=== PATIENT | female | born 1980 | race Caucasian/White ===

== ENCOUNTER 2018-09-10 18:05 | Inpatient (IN) | payer SELFPAY ==
[~2018-09-10] VITALS: Ht 165.1 cm; Wt 99.6 kg
[2018-09-10 18:14] VITALS: Ht 165.1 cm; Wt 99.6 kg
[2018-09-10] MEDS ORDERED: SODIUM CHLORIDE 0.9% 1L BAG IV* STA (18:50)
[2018-09-10] MEDS ORDERED: ACETAMINOPHEN 325 MG TAB PO STA (18:50)
[2018-09-10] MEDS ORDERED: ONDANSETRON 4 MG INJ IV STA (20:00)
[2018-09-10] MEDS ORDERED: morphine 4 MG/ML VIAL IV STA ×2 (20:00→21:19)
[2018-09-10] MEDS ORDERED: IOHEXOL 300MG/ML 150 ML BTL ONE (20:04)
[2018-09-10] MEDS ORDERED: SOD CHLORIDE 0.9% 100 ML ONE (20:04)
[2018-09-10] MEDS ORDERED: DIPHENHYDRAMINE 50 MG INJ IV ONE (21:00)
[2018-09-10] MEDS ORDERED: LEVOFLOXACIN 750MG/D5W (PMX) 150 ML IVPB ONE (21:00)
[2018-09-10] MEDS ORDERED: VANCOMYCIN 1 GM (PMX) 250 ML IVPB ONE (21:00)
[2018-09-10 21:36] VITALS: RESP 20
[2018-09-10 21:55] VITALS: PULSE 106
[2018-09-10 22:06] VITALS: BP 118/56; PULSE 105
[2018-09-10] MEDS ORDERED: ACETAMINOPHEN 325 MG TAB PO PRN (22:30)
[2018-09-10] MEDS ORDERED: ONDANSETRON 4 MG INJ IV PRN (22:30)
[2018-09-10] MEDS ORDERED: ALBUTEROL/IPRATROPIUM (NEB) 3 ML AMP HHN PRN (22:30)
[2018-09-10] MEDS ORDERED: NACL 0.9% 3 ML SYG IV SCH (22:30)
--- NOTE | 2018-09-10 22:32 | HP ---
Date/Time of Note Date/Time of Note DATE: 09/10/18 TIME: 22:32 Assessment/Plan VTE Prophylaxis Pharmacological prophylaxis: heparin Lines/Catheters IV [facility]ter [facility]from [facility]ine [facility] Assessment/Plan Assessment/Plan Patient presented with chest pain and found to be septic secondary to UTI. CT pulmonary angiogram shows the following -No evidence of pulmonary embolism or aortic dissection. -Homogeneous mass with lobulated contours measuring 2.3 x 3.2 x 2.9 cm posterior to the manubrium entirely above of the arch of the aorta. Differential includes but is not limited to a substernal thyroid, thymoma and teratoma. -Multiple poorly defined hypodense lesions within the liver measuring up to 1.3 cm, indeterminate. Further evaluation can be made by ultrasound or dedicated triple phase CT of the liver. -Status post cholecystectomy. Shortly after she was admitted to telemetry floor, patient stated that she wanted to leave [place]. I did get a chance to speak to her in person, however I talked to her over the phone extensively. We discussed the finding of CTPA and I told her the possibility of malignancy. She said that she has to go because of some family issue. She promised to follow-up with her PCP in [place]. Desp ite several attempts to make her change her mind, patient decided to leave [place]. Result Diagram: 09/10/[id number]/[id number] Results 24hrs Laboratory Tests Test 09/10/18 18:58 09/10/18 18:59 09/10/18 19:22 09/10/18 19:23 Urine Color YELLOW Urine Clarity CLOUDY A Urine pH 8.0 Urine Specific 1.018 [place] Urine Ketones NEGATIVE Urine Nitrite NEGATIVE Urine Bilirubin NEGATIVE Urine Urobilinogen NEGATIVE Urine Leukocyte 2+ H Esterase Urine Microscopic 4 RBC Urine Microscopic 50 H WBC Urine Squamous MANY A Epithelial Cells Urine Bacteria FEW A Urine Mucus FEW A Urine Hemoglobin NEGATIVE Urine Glucose NEGATIVE Urine Total Protein NEGATIVE Urine Opiates Screen Positive Urine Barbiturates Negative Urine Amphetamines Negative Screen Urine Negative Benzodiazepines Screen Urine Cocaine Screen Negative Urine Cannabinoids Negative POC Venous Lactate 2.7 *H Sodium Level 141 Potassium Level 3.9 Chloride Level 106 Carbon Dioxide Level 26 Anion Gap 9 Blood Urea Nitrogen 12 Creatinine 0.64 Est Glomerular > 60 Filtrat Rate mL/min Glucose Level 111 Calcium Level 9.0 Total Bilirubin 0.2 Direct Bilirubin 0.00 Indirect Bilirubin 0.2 Aspartate Amino 38 Transf (AST/SGOT) Alanine 43 Aminotransferase (AL T/SGPT) Alkaline Phosphatase 150 H Troponin I < 0.012 Total Protein 7.3 Albumin 4.0 Globulin 3.30 H Albumin/Globulin 1.21 Ratio Test 09/10/18 19:49 09/10/18 21:29 White Blood Count 12.3 H Red Blood Count 4.56 Hemoglobin 10.7 L Hematocrit 35.8 L Mean Corpuscular 78.5 L Volume Mean Corpuscular 23.5 L Hemoglobin Mean Corpuscular 29.9 L Hemoglobin Concent Red Cell 18.9 H Distribution Width Platelet Count 411 Mean Platelet Volume 10.0 Immature 0.500 H Granulocytes % Neutrophils % 72.0 Lymphocytes % 18.3 Monocytes % 7.9 Eosinophils % 1.1 Basophils % 0.2 Nucleated Red Blood 0.0 Cells % Immature 0.060 H Granulocytes # Neutrophils # 8.9 H Lymphocytes # 2.3 Monocytes # 1.0 H Eosinophils # 0.1 Basophils # 0.0 Nucleated Red Blood 0.0 Cells # Prothrombin Time 12.2 Prothrombin Time 1.0 Ratio INR International 0.89 Normalized Ratio Activated 31.0 Partial Thromboplast Time POC Venous Lactate 1.4 HPI/ROS Admit Date/Time Admit Date/Time September 10, 2018 at 20:55 Hx of Present Illness This is a 38-year-old female with a history of mitral valve repair who presents the ER complaining of chest pain. When she presented to the ER, she was found to be febrile with temperature of 101, heart rate 123. UA consistent with UTI. EKG without ST elevation or depression and first troponin negative. Chest x-ray without acute findings. CTPA however shows the following: -No evidence of pulmonary embolism or aortic dissection. -Homogeneous mass with lobulated contours measuring 2.3 x 3.2 x 2.9 cm posterior to the manubrium entirely above of the arch of the aorta. Differential includes but is not limited to a substernal thyroid, thymoma and teratoma. -Multiple poorly defined hypodense lesions within the liver measuring up to 1.3 cm, indeterminate. Further evaluation can be made by ultrasound or dedicated triple phase CT of the liver. -Status post cholecystectomy. Shortly after she was admitted to telemetry floor, patient stated that she wanted to leave [place]. I did get a chance to speak to her in person, however I talked to her over the phone extensively. We discussed the finding of CTPA and I told her the possibility of malignancy. She said that she has to go because of some family issue. She promised to follow-up with her PCP in [place]. Despite several attempts to make her change her mind, patient decided to leave [place]. PMH/Family/Social Past Medical History Medical History: other (See HPI) Medications Current Medications Vancomycin HCl 250 ml @ 125 mls/hr ONCE ONCE IVPB Last administered on 09/10/18at 22:30; Admin Dose 125 MLS/HR; Start 09/10/18 at 21:00; Stop 09/10/18 at 22:59 Coded Allergies: Penicillins (Unverified Allergy, Unknown, 09/10/18) Past Surgical History Past Surgical Hx: other (I told the repair) Family History Significant Family History: other (Family member and her mother side with a diagnosis of some type of cancer at age of 60) Social History Alcohol Use: other (Unknown) Smoking Status: Never smoker Drug Use: other (Unknown) Exam/Review of Systems Vital Signs Vitals Vital Signs Date Temp Pulse Resp B/P (MAP) Pulse Ox O2 O2 Flow FiO2 Time Delivery Rate 09/10/18 98.7 105 118/56 97 Room Air 22:06 (76) 09/10/18 20 21:36 Exam Exam Patient left AMA right after she got admitted so did not get a chance to examine. BRIAN CARDENAS MD September 10, 2018 22:32
[2018-09-10 23:16] VITALS: PULSE 104
--- NOTE | 2018-09-11 05:40 | DS ---
Date/Time of Note Date/Time of Note DATE: 09/11/18 TIME: 05:39 Discharge Summary Admission/Discharge Info Admit Date/Time September 10, 2018 at 20:55 Discharge Date/Time September 10, 2018 at 23:30 Discharge Diagnosis 1. Sepsis, secondary to UTI 2. Chest pain 3. Abnormal CTPA (see radiology report or below under hospital course) 4. Patient left AMA shortly after admission Patient Condition: Serious Hx of Present Illness This is a 38-year-old female with a history of mitral valve repair who presents the ER complaining of chest pain. When she presented to the ER, she was found to be febrile with temperature of 101, heart rate 123. UA consistent with UTI. EKG without ST elevation or depression and first troponin negative. Chest x-ray without acute findings. CTPA however shows the following: -No evidence of pulmonary embolism or aortic dissection. -Homogeneous mass with lobulated contours measuring 2.3 x 3.2 x 2.9 cm posterior to the manubrium entirely above of the arch of the aorta. Differential includes but is not limited to a substernal thyroid, thymoma and teratoma. -Multiple poorly defined hypodense lesions within the liver measuring up to 1.3 cm, indeterminate. Further evaluation can be made by ultrasound or dedicated triple phase CT of the liver. -Status post cholecystectomy. Hospital Course Patient presented with chest pain and found to be septic secondary to UTI. CT pulmonary angiogram shows the following -No evidence of pulmonary embolism or aortic dissection. -Homogeneous mass with lobulated contours measuring 2.3 x 3.2 x 2.9 cm posterior to the manubrium entirely above of the arch of the aorta. Differential includes but is not limited to a substernal thyroid, thymoma and teratoma. -Multiple poorly defined hypodense lesions within the liver measuring up to 1.3 cm, indeterminate. Further evaluation can be made by ultrasound or dedicated triple phase CT of the liver. -Status post cholecystectomy. Shortly after she was admitted to telemetry floor, patient stated that she wanted to leave [place]. I did get a chance to speak to her in person, however I talked to her over the phone extensively. We discussed the finding of CTPA and I told her the possibility of malignancy. She said that she has to go because of some family issue. She promised to follow-up with her PCP in [place]. Despite several attempts to make her change her mind, patient decided to leave [place]. Primary Care Provider Care Physician No Primary Pending Labs Laboratory Tests Test 09/10/18 18:58 09/10/18 18:59 09/10/18 19:22 09/10/18 19:23 Urine Color YELLOW (YELLOW) Urine Clarity CLOUDY (CLEAR) Urine pH 8.0 (5.0-9.0) Urine Specific 1.018 (1.003-1. [place] 030) Urine Ketones NEGATIVE mg/dL (NEGATIVE ) Urine Nitrite NEGATIVE mg/dL (NEGATIVE ) Urine NEGATIVE Bilirubin mg/dL (NEGATIVE ) Urine NEGATIVE Urobilinogen mg/dL (NEGATIVE ) Urine Leukocyte 2+ Esterase Gustavo/ul (NEGATIV E) Urine 4 /HPF (0-5) Microscopic RBC Urine 50 /HPF (0-5) Microscopic WBC Urine Squamous MANY /HPF (FEW) Epithelial Cell s Urine Bacteria FEW /HPF (NONE SEEN) Urine Mucus FEW /HPF (NONE SEEN) Urine NEGATIVE Hemoglobin mg/dL (NEGATIVE ) Urine Glucose NEGATIVE mg/dL (NEGATIVE ) Urine Total NEGATIVE Protein mg/dl (NEGATIVE ) Urine Opiates Positive (NEGA Screen TIVE) Urine Negative (NEGA Barbiturates TIVE) Urine Negative (NEGA Amphetamines TIVE) Screen Urine Negative (NEGA Benzodiazepines TIVE) Screen Urine Cocaine Negative (NEGA Screen TIVE) Urine Negative (NEGA Cannabinoids TIVE) POC Venous 2.7 Lactate mmol/L (0.5-2. 0) Sodium Level 141 mmol/L (135-14 4) Potassium 3.9 Level mmol/L (3.5-5. 1) Chloride Level 106 mmol/L (97-110 ) Carbon Dioxide 26 Level mmol/L (21-31) Anion Gap 9 (5-13) Blood Urea 12 Nitrogen mg/dl (7-20) Creatinine 0.64 mg/dl (0.44-1. 00) Est Glomerular > 60 Filtrat mL/min (>60) Rate mL/min Glucose Level 111 mg/dl (70-220) Calcium Level 9.0 mg/dl (8.4-10. 2) Total 0.2 Bilirubin mg/dl (0.2-1.3 ) Direct 0.00 Bilirubin mg/dl (0.00-0. 20) Indirect 0.2 Bilirubin mg/dl (0-1.1) Aspartate Amino 38 Transf (AST/SGO IU/L (15-46) T) Alanine 43 Aminotransferas IU/L (13-69) e (ALT/SGPT) Alkaline 150 Phosphatase IU/L (42-121) Troponin I < 0.012 ng/ml (0.000-0 .120) Total Protein 7.3 g/dl (6.1-8.1) Albumin 4.0 g/dl (3.3-4.9) Globulin 3.30 g/dl (1.3-3.2) Albumin/Globuli 1.21 n Ratio Test 09/10/18 19:49 09/10/18 21:29 White Blood 12.3 Count 10^3/ul (4.8-10 .8) Red Blood 4.56 Count 10^6/ul (4.20-5 .40) Hemoglobin 10.7 g/dl (12.0-16.0 ) Hematocrit 35.8 % (37.0-47.0) Mean 78.5 Corpuscular fl (82.0-101.0) Volume Mean 23.5 Corpuscular pg (29.0-33.0) Hemoglobin Mean 29.9 Corpuscular g/dl (32.0-37.0 Hemoglobin Conc ) ent Red Cell 18.9 Distribution % (11.5-14.5) Width Platelet Count 411 10^3/UL (140-41 5) Mean Platelet 10.0 Volume fl (7.4-10.4) Immature 0.500 Granulocytes % % (0.001-0.429) Neutrophils % 72.0 % (39.0-77.0) Lymphocytes % 18.3 % (15.0-51.0) Monocytes % 7.9 % (0.0-11.0) Eosinophils % 1.1 % (0.0-7.0) Basophils % 0.2 % (0.0-2.0) Nucleated Red 0.0 Blood Cells % /100WBC (0.0-0. 0) Immature 0.060 Granulocytes # 10^3/ul (0.0-0. 031) Neutrophils # 8.9 10^3/ul (1.6-7. 5) Lymphocytes # 2.3 10^3/ul (0.8-2. 9) Monocytes # 1.0 10^3/ul (0.3-0. 9) Eosinophils # 0.1 10^3/ul (0.0-0. 5) Basophils # 0.0 10^3/ul (0.0-0. 1) Nucleated Red 0.0 Blood Cells # 10^3/ul (0.0-0. 0) Prothrombin 12.2 Time Sec (11.9-14.9) Prothrombin 1.0 Time Ratio INR 0.89 International Normalized Rati o Activated 31.0 Partial Thrombo Sec (23.0-35.0) plast Time POC Venous 1.4 Lactate mmol/L (0.5-2. 0) BRIAN CARDENAS MD September 11, 2018 05:40
== END 2018-09-10 23:30 | disposition left against medical advice (07) | DRG 872 ==
LOC: E/R 18:05 → 6WM 20:55
PROVIDERS: ADMIT Internal Medicine; ATTEND Internal Medicine
DX: A41.9 Sepsis, unspecified organism (principal); N39.0 Urinary tract infection, site not specified; R07.9 Chest pain, unspecified; R22.2 Localized swelling, mass and lump, trunk
CPT/HCPCS: 71045; 71275; 80053; 80307; 81001; 83605; 84484; 85025; 85610; 85730; 87086; 93005; J1200; J1956; J2270; J2405; J3370; J7030; Q9967

== ENCOUNTER 2018-09-28 17:22 | Emergency (ER) | payer SELFPAY ==
[~2018-09-28] VITALS: Ht 154.9 cm; Wt 98.8 kg
[2018-09-28 17:24] VITALS: Ht 154.9 cm; Wt 98.8 kg
[2018-09-28] MEDS ORDERED: morphine 4 MG/ML VIAL IV STA (18:59)
[2018-09-28] MEDS ORDERED: SOD CHLORIDE 0.9% 1,000 ML IV STA (18:59)
[2018-09-28] MEDS ORDERED: ONDANSETRON 4 MG INJ IV STA (18:59)
[2018-09-28] MEDS ORDERED: HYDROmorphONE 2 MG/ML SYG IV STA (20:20)
[2018-09-28] MEDS ORDERED: NITR-58 PO (20:46)
--- NOTE | 2018-09-28 20:47 | ERD ---
ER Documentation Chief Complaint Chief Complaint SHARP STABBING LEFT CHEST PAIN RADIATES TO LEFT AMD AND ABDOMEN, HX OF PE HPI Patient is a 38-year-old female with pyelonephritis who presents with chest pain and abdominal pain. Her symptoms started in her bellybutton but now are in the right lower quadrant. Pain started 2 days ago. She now feels pain in her chest as of today. The symptoms have been constant. She has had decreased intake by mouth. She feels palpitations as well. She tried [place] and Tylenol. Upon review of old medical records the patient had one previous visit to the ER on September 10. The patient's primary doctor is Dr. Marlyn Cabrera. ROS All systems reviewed and are negative except as per history of present illness. Medications Home Meds Active Scripts Nitrofurantoin Monohyd Macrocr* (Macrobid*) 100 Mg Capsr, 100 MG PO BID for 7 Days, CAP Prov:KENNY VALLES MD 09/28/18 Allergies Allergies: Coded Allergies: Penicillins (Unverified Allergy, Unknown, 09/10/18) PMhx/Soc History of Surgery: Yes (MITRAL VALVE REPAIR, GALL BLADDER SX, C/S) Anesthesia Reaction: No Hx Neurological Disorder: No Hx Respiratory Disorders: No Hx Cardiac Disorders: Yes (MITRAL VALVE REPAIR) Hx Psychiatric Problems: No Hx Miscellaneous Medical Probl: No Hx Alcohol Use: No Hx Substance Use: No Hx Tobacco Use: No Smoking Status: Never smoker FmHx Family History: coronary disease Physical Exam Vitals Vital Signs Date Temp Pulse Resp B/P (MAP) Pulse Ox O2 O2 Flow FiO2 Time Delivery Rate 09/28/18 80 16 121/79 99 Room Air 21:03 (93) 09/28/18 99.8 93 19 138/94 97 17:24 (109) Physical Exam Const: Moderate distress Head: Atraumatic Eyes: Normal Conjunctiva ENT: Normal External Ears, Nose and Mouth. Neck: Full range of motion. No meningismus. Resp: Clear to auscultation bilaterally Cardio: Regular rate and rhythm, no murmurs Abd: Soft, right lower quadrant tenderness to palpation without rebound or guarding Skin: No petechiae or rashes Back: No midline or flank tenderness Ext: No cyanosis, or edema Neur: Awake and alert Psych: Normal Mood and Affect Result Diagram: [id number] Results 24 hrs Laboratory Tests Test 09/28/18 19:31 09/28/18 19:45 09/28/18 19:48 09/28/18 19:53 White Blood Count 8.3 10^3/ul Red Blood Count 4.69 10^6/ul Hemoglobin 11.1 g/dl Hematocrit 37.5 % Mean Corpuscular 80.0 fl Volume Mean Corpuscular 23.7 pg Hemoglobin Mean Corpuscular 29.6 g/dl Hemoglobin Concen t Red Cell 17.5 % Distribution Width Platelet Count 377 10^3/UL Mean Platelet 10.7 fl Volume Immature 0.200 % Granulocytes % Neutrophils % 61.3 % Lymphocytes % 25.7 % Monocytes % 8.9 % Eosinophils % 3.5 % Basophils % 0.4 % Nucleated Red 0.0 /100WBC Blood Cells % Immature 0.020 10^3/ul Granulocytes # Neutrophils # 5.1 10^3/ul Lymphocytes # 2.1 10^3/ul Monocytes # 0.7 10^3/ul Eosinophils # 0.3 10^3/ul Basophils # 0.0 10^3/ul Nucleated Red 0.0 10^3/ul Blood Cells # Sodium Level 141 mmol/L Potassium Level 3.7 mmol/L Chloride Level 107 mmol/L Carbon Dioxide 27 mmol/L Level Anion Gap 7 Blood Urea 8 mg/dl Nitrogen Creatinine 0.76 mg/dl Est Glomerular > 60 mL/min Filtrat Rate mL/min Glucose Level 101 mg/dl Calcium Level 9.4 mg/dl Total Bilirubin 0.3 mg/dl Direct Bilirubin 0.00 mg/dl Indirect 0.3 mg/dl Bilirubin Aspartate Amino 34 IU/L Transf (AST/SGOT) Alanine 47 IU/L Aminotransferase (ALT/SGPT) Alkaline 131 IU/L Phosphatase Troponin I < 0.012 ng/ml Total Protein 7.5 g/dl Albumin 4.4 g/dl Globulin 3.10 g/dl Albumin/Globulin 1.41 Ratio Lipase 73 U/L Urine Color YELLOW Urine Clarity CLOUDY Urine pH 5.0 Urine Specific 1.019 [place] Urine Ketones NEGATIVE mg/dL Urine Nitrite NEGATIVE mg/dL Urine Bilirubin NEGATIVE mg/dL Urine NEGATIVE mg/dL Urobilinogen Urine Leukocyte NEGATIVE Gustavo/ul Esterase Urine Microscopic 2 /HPF RBC Urine Microscopic 7 /HPF WBC Urine Squamous FEW /HPF Epithelial Cells Urine Bacteria FEW /HPF Urine Mucus MANY /HPF Urine Hemoglobin NEGATIVE mg/dL Urine Glucose NEGATIVE mg/dL Urine Total NEGATIVE mg/dl Protein Bedside Urine pH 5.5 (LAB) Bedside Urine Negative Protein (LAB) Bedside Urine Negative Glucose (UA) Bedside Urine Negative Ketones (LAB) Bedside Urine Negative Blood Bedside Urine Negative Nitrite (LAB) Bedside Urine Negative Leukocyte Esteras e (L POC Beta HCG, NEGATIVE Qualitative Current Medications Medications Dose Sig/[place] Start Time Status Last (Trade) Ordered Route PRN Stop Time Admin Dose Reason Admin Sodium 1,000 ml @ Q1H STAT 09/28/18 DC 09/28/18 Chloride 1,000 mls/hr IV 18:59 19:35 09/28/18 19:58 Morphine 4 mg ONCE STAT 09/28/18 DC 09/28/18 Sulfate IV 18:59 19:35 (morphine) 09/28/18 19:00 Ondansetron 4 mg ONCE STAT 09/28/18 DC 09/28/18 HCl (Zofran IV 18:59 19:35 Inj) 09/28/18 19:00 1 mg ONCE STAT 09/28/18 DC 09/28/18 Hydromorphone IV 20:20 20:26 HCl 09/28/18 20:21 (Dilaudid) Procedures/MDM EKG read by me: Rate/Rhythm: Regular rate and rhythm at a rate of 89 Intervals: Normal Impression: No evidence of ischemia or arrhythmia Chest x-ray negative per radiology. CT abdomen pelvis negative per radiology. Patient is a 38-year-old female who presents with abdominal pain and chest pain. Laboratory studies are basically negative. PERC score 0. Chest x-ray is negative. CT scan of the abdomen and pelvis shows no surgical process. At this point I doubt acute coronary syndrome, pneumonia, pneumothorax, pulmonary embolism, or aortic dissection. I doubt appendicitis, cholecystitis, pancreatitis, or bowel obstruction. Patient was treated for pain. The patient was found to have a mild UTI and I will treat with Macrobid for 1 week. The patient can return for any worsening symptoms. I believe outpatient management is appropriate at this time. Departure Diagnosis: Primary Impression: Cystitis Additional Impressions: Abdominal pain Abdominal location: right lower quadrant Qualified Codes: R10.31 - Right lower quadrant pain Chest pain Chest pain type: unspecified Qualified Codes: R07.9 - Chest pain, unspecified Condition: Fair Patient Instructions: Abdominal Pain, Cystitis, Chest Pain, Uncertain Cause Referrals: MARLYN CABRERA MD Additional Instructions: Call your primary care doctor TOMORROW for an appointment during the next 1-2 days.See the doctor sooner or return here if your condition worsens before your appointment time. KENNY VALLES MD September 28, 2018 20:47
[2018-09-28 21:03] VITALS: BP 121/79; PULSE 80; RESP 16
== END 2018-09-28 21:05 | disposition home or self-care (01) ==
LOC: E/R 17:22
DX: N30.90 Cystitis, unspecified without hematuria (principal); R07.9 Chest pain, unspecified
CPT/HCPCS: 71045; 74176; 80053; 81001; 81025; 83690; 84484; 85025; 93005; J1170; J2270; J2405; J7030; 36415; 81003; 96374; 96375

== ENCOUNTER 2018-10-21 15:00 | Emergency (ER) | payer SELFPAY ==
[~2018-10-21] VITALS: Ht 152.4 cm; Wt 95.6 kg
[~2018-10-21 15:00] MED LIST: NITR-58 PO
[2018-10-21 15:02] VITALS: Ht 152.4 cm; Wt 95.6 kg
[2018-10-21] MEDS ORDERED: ONDANSETRON 4 MG INJ IV STA (15:40)
[2018-10-21] MEDS ORDERED: morphine 4 MG/ML VIAL IV STA (15:40)
[2018-10-21] MEDS ORDERED: SOD CHLORIDE 0.9% 1,000 ML IV STA (15:40)
[2018-10-21] MEDS ORDERED: METHYLPREDNISOLONE 40 MG INJ IV ONE (17:00)
[2018-10-21] MEDS ORDERED: DIPHENHYDRAMINE 50 MG INJ IV ONE (17:00)
[2018-10-21] MEDS ORDERED: IOHEXOL 300MG/ML 150 ML BTL ONE (17:28)
[2018-10-21] MEDS ORDERED: SOD CHLORIDE 0.9% 100 ML ONE (17:28)
[2018-10-21] MEDS: KETOROLAC 15 MG INJ IV STA ×2 (17:53→17:56)
[2018-10-21] MEDS ORDERED: CIPR500T4 PO (18:29)
[2018-10-21] MEDS ORDERED: ONDA4TAB14 PO (18:32)
--- NOTE | 2018-10-21 18:32 | ERD ---
ER Documentation Chief Complaint Chief Complaint RT LOWER QUADRANT PAIN WITH NAUSEA/VOMITING , SENT BY PMD TO R/O APPY ROS All systems reviewed and are negative except as per history of present illness. Medications Home Meds Active Scripts Ciprofloxacin Hcl* (Ciprofloxacin Hcl*) 500 Mg Tablet, 500 MG PO BID for uti for 5 Days, #10 TAB Prov:CRISTOPHER AKINS DO 10/21/18 Nitrofurantoin Monohyd Macrocr* (Macrobid*) 100 Mg Capsr, 100 MG PO BID for 7 Days, CAP Prov:KENNY VALLES MD 09/28/18 Allergies Allergies: Coded Allergies: metoclopramide (Verified Allergy, Intermediate, 10/21/18) Penicillins (Unverified Allergy, Unknown, 10/21/18) ibuprofen (Verified Allergy, Unknown, 10/21/18) ketorolac (Verified Allergy, Unknown, 10/21/18) PMhx/Soc History of Surgery: Yes (MITRAL VALVE REPAIR, GALL BLADDER SX, C/S) Anesthesia Reaction: No Hx Neurological Disorder: No Hx Respiratory Disorders: No Hx Cardiac Disorders: Yes (MITRAL VALVE REPAIR) Hx Psychiatric Problems: No Hx Miscellaneous Medical Probl: No Hx Alcohol Use: No Hx Substance Use: No Hx Tobacco Use: No Smoking Status: Never smoker Physical Exam Vitals Vital Signs Date Temp Pulse Resp B/P (MAP) Pulse Ox O2 O2 Flow FiO2 Time Delivery Rate 10/21/18 98.3 90 18 148/65 99 15:02 (92) Physical Exam Const: No acute distress Head: Atraumatic Eyes: Normal Conjunctiva ENT: Normal External Ears, Nose and Mouth. Neck: Full range of motion. No meningismus. Resp: Clear to auscultation bilaterally Cardio: Regular rate and rhythm, no murmurs Abd: Soft, non tender, non distended. Normal bowel sounds Skin: No petechiae or rashes Back: No midline or flank tenderness Ext: No cyanosis, or edema Neur: Awake and alert Psych: Normal Mood and Affect Result Diagram: 10/21/18 1613 10/21/18 1612 Results 24 hrs Laboratory Tests Test 10/21/18 16:02 10/21/18 16:12 10/21/18 16:13 POC Beta HCG, Qualitative NEGATIVE Sodium Level 146 mmol/L Potassium Level 3.4 mmol/L Chloride Level 106 mmol/L Carbon Dioxide Level 28 mmol/L Anion Gap 12 Blood Urea Nitrogen 9 mg/dl Creatinine 0.75 mg/dl Est Glomerular Filtrat > 60 mL/min Rate mL/min Glucose Level 88 mg/dl Calcium Level 9.8 mg/dl Total Bilirubin 0.2 mg/dl Direct Bilirubin 0.00 mg/dl Indirect Bilirubin 0.2 mg/dl Aspartate Amino Transf (AST/SGOT) 37 IU/L Alanine 39 IU/L Aminotransferase (ALT/SGPT) Alkaline Phosphatase 144 IU/L Total Protein 7.6 g/dl Albumin 4.4 g/dl Globulin 3.20 g/dl Albumin/Globulin Ratio 1.37 Lipase 54 U/L White Blood Count 9.4 10^3/ul Red Blood Count 4.74 10^6/ul Hemoglobin 11.2 g/dl Hematocrit 37.3 % Mean Corpuscular Volume 78.7 fl Mean Corpuscular Hemoglobin 23.6 pg Mean Corpuscular 30.0 g/dl Hemoglobin Concent Red Cell Distribution Width 16.3 % Platelet Count 361 10^3/UL Mean Platelet Volume 11.1 fl Immature Granulocytes % 0.300 % Neutrophils % 64.3 % Lymphocytes % 22.2 % Monocytes % 9.3 % Eosinophils % 3.4 % Basophils % 0.5 % Nucleated Red Blood Cells % 0.0 /100WBC Immature Granulocytes # 0.030 10^3/ul Neutrophils # 6.1 10^3/ul Lymphocytes # 2.1 10^3/ul Monocytes # 0.9 10^3/ul Eosinophils # 0.3 10^3/ul Basophils # 0.1 10^3/ul Nucleated Red Blood Cells # 0.0 10^3/ul Urine Color YELLOW Urine Clarity CLOUDY Urine pH 5.0 Urine Specific [place] 1.023 Urine Ketones TRACE mg/dL Urine Nitrite NEGATIVE mg/dL Urine Bilirubin NEGATIVE mg/dL Urine Urobilinogen NEGATIVE mg/dL Urine Leukocyte Esterase 1+ Gustavo/ul Urine Microscopic RBC 9 /HPF Urine Microscopic WBC 15 /HPF Urine Squamous Epithelial Cells MODERATE /HPF Urine Bacteria FEW /HPF Urine Mucus MANY /HPF Urine Hemoglobin NEGATIVE mg/dL Urine Glucose NEGATIVE mg/dL Urine Total Protein NEGATIVE mg/dl Current Medications Medications Dose Sig/Kim[place]lee Start Time Status Last (Trade) Ordered Route PRN Stop Time Admin Dose Reason Admin Sodium 1,000 ml @ Q1H STAT 10/21/18 DC 10/21/18 Chloride 1,000 mls/hr IV 15:40 16:18 10/21/18 16:39 Morphine 4 mg ONCE STAT 10/21/18 DC 10/21/18 Sulfate IV 15:40 16:19 (morphine) 10/21/18 15:42 Ondansetron 4 mg ONCE STAT 10/21/18 DC 10/21/18 HCl (Zofran IV 15:40 16:18 Inj) 10/21/18 15:42 40 mg ONCE ONCE 10/21/18 DC 10/21/18 Methylprednis IV 17:00 17:29 olone Sodium 10/21/18 17:01 Succinate (Solu-Medrol) 25 mg ONCE ONCE 10/21/18 DC 10/21/18 Diphenhydrami IV 17:00 17:29 ne HCl 10/21/18 17:01 (Benadryl) IV Flush 10 ml STK-MED 10/21/18 DC (NS 10 ml) ONCE .ROUTE 17:28 10/21/18 17:29 Sodium 100 ml @ ud STK-MED 10/21/18 DC Chloride ONCE .ROUTE 17:28 10/21/18 17:29 Iohexol 150 ml STK-MED 10/21/18 DC (Omnipaque ONCE .ROUTE 17:28 300mg/ ml) 10/21/18 17:29 Ketorolac 15 mg ONCE STAT 10/21/18 DC Tromethamine IV 17:48 (Toradol) 10/21/18 17:52 Departure Diagnosis: Primary Impression: Abdominal pain Abdominal location: right lower quadrant Qualified Codes: R10.31 - Right lower quadrant pain Additional Impression: UTI (urinary tract infection) Urinary tract infection type: site unspecified Hematuria presence: without hematuria Qualified Codes: N39.0 - Urinary tract infection, site not specified Condition: Fair Patient Instructions: Abdominal Pain, Understanding Urinary Tract Infections (UTIs) Additional Instructions: Call your primary care doctor TOMORROW for an appointment during the next 1-2 days.See the doctor sooner or return here if your condition worsens before your appointment time. CRISTOPHER AKINS DO Oct 21, 2018 18:32
[2018-10-21 18:41] VITALS: BP 121/80; PULSE 98; RESP 16
== END 2018-10-21 18:41 | disposition home or self-care (01) ==
LOC: FTE 15:00
DX: N39.0 Urinary tract infection, site not specified (principal)
CPT/HCPCS: 74177; 80053; 81001; 81025; 83690; 85025; J1200; J2270; J2405; J2920; J7030; Q9967; 36415; 96374; 96375; J1885

== ENCOUNTER 2018-11-12 14:46 | Emergency (ER) | payer SELFPAY ==
[~2018-11-12] VITALS: Ht 157.5 cm; Wt 100.0 kg
[~2018-11-12 14:46] MED LIST changes: +CIPR500T4 PO; +ONDA4TAB14 PO
[2018-11-12 14:49] VITALS: Ht 157.5 cm; Wt 100.0 kg
--- NOTE | 2018-11-12 15:18 | ERD ---
ER Documentation Chief Complaint Chief Complaint CP ONSET 0600 TODAY , PRESSURE,STABBING,NON RADIATING HPI 38-year-old female with a history of mitral valve replacement in 2007 and DVT/pulmonary embolism in 2016 presents to the ED complaining of a 1 day history of moderate, sharp, stabbing and pressure-like, nonradiating substernal chest pain with shortness of breath. Denies nausea, vomiting or diaphoresis. Pain exacerbated by deep breathing but there are no relieving factors. Denies leg pain or swelling although recently returned from a long car trip. No cough or hemoptysis. Patient took patient to aspirin 81 mg x 3 and 3 sublingual nitroglycerin every 5 minutes without relief of chest pain but did cause a headache. No abdominal pain or back pain. No URI symptoms or body aches. No fevers or chills. ROS All systems reviewed and are negative except as per history of present illness. Medications Home Meds Reported Medications Aspirin* (Aspirin* EC) 81 Mg Tablet.dr, 81 MG PO DAILY, TAB 11/12/18 Nitroglycerin* (Nitroglycerin* SL) 0.4 Mg Tab.subl, 0.4 MG SL Q5MIN PRN for CHEST PAIN, BOTTLE 11/12/18 Discontinued Scripts Ondansetron (Ondansetron Odt) 4 Mg Tab.rapdis, 4 MG PO Q6H PRN for NAUSEA AND/OR VOMITING, #20 TAB Prov:CRISTOPHER AKINS DO 10/21/18 Ciprofloxacin Hcl* (Ciprofloxacin Hcl*) 500 Mg Tablet, 500 MG PO BID for uti for 5 Days, #10 TAB Prov:CRISTOPHER AKINS DO 10/21/18 Nitrofurantoin Monohyd Macrocr* (Macrobid*) 100 Mg Capsr, 100 MG PO BID for 7 Days, CAP Prov:KENNY VALLES MD 09/28/18 Allergies Allergies: Coded Allergies: metoclopramide (Verified Allergy, Intermediate, 11/12/18) Penicillins (Unverified Allergy, Unknown, 11/12/18) ibuprofen (Verified Allergy, Unknown, 11/12/18) ketorolac (Verified Allergy, Unknown, 11/12/18) PMhx/Soc History of Surgery: Yes (MITRAL VALVE REPAIR, GALL BLADDER SX, C/S, rt oopherectomy) Anesthesia Reaction: No Hx Respiratory Disorders: No Hx Cardiac Disorders: Yes (MITRAL VALVE REPAIR) Hx Psychiatric Problems: No Hx Miscellaneous Medical Probl: Yes (ovarian cyst removal, ovarian torsion) Hx Alcohol Use: No Hx Substance Use: No Hx Tobacco Use: No Smoking Status: Never smoker FmHx Mother of heart disease at an early age. Physical Exam Vitals Vital Signs Date Temp Pulse Resp B/P (MAP) Pulse Ox O2 O2 Flow FiO2 Time Delivery Rate 11/12/18 98.6 90 18 131/77 100 Room Air 18:51 (95) 11/12/18 88 16 126/84 100 Room Air 17:58 (98) 11/12/18 98.1 101 18 140/67 99 14:49 (91) Physical Exam Const: Moderate distress. Head: Atraumatic Eyes: Normal Conjunctiva ENT: Normal External Ears, Nose and Mouth. Neck: Full range of motion. No JVD. Carotids 2+ bilateral without bruits. Resp: Breath sounds are equal bilaterally and clear to auscultation without rales rhonchi or wheezes. Cardio: Regular rate and rhythm, no murmurs, gallops or rubs. Abd: Soft, non tender, non distended. Normal bowel sounds Skin: No petechiae or rashes Back: No midline or flank tenderness Ext: No cyanosis, or edema. No calf swelling or tenderness. Pulses 4+ in all extremities. Neur: Awake and alert. No focal deficit. Psych: Anxious but not depressed. Result Diagram: 11/12/18 1717 11/12/18 1550 Results 24 hrs Laboratory Tests Test 11/12/18 15:50 11/12/18 17:17 Prothrombin Time 11.9 Sec Prothrombin Time Ratio 0.9 INR International Normalized Ratio 0.87 Activated Partial Thromboplast Time 24.8 Sec Sodium Level 141 mmol/L Potassium Level 3.4 mmol/L Chloride Level 104 mmol/L Carbon Dioxide Level 29 mmol/L Anion Gap 8 Blood Urea Nitrogen 9 mg/dl Creatinine 0.70 mg/dl Est Glomerular Filtrat Rate mL/min > 60 mL/min Glucose Level 104 mg/dl Calcium Level 9.5 mg/dl Troponin I < 0.012 ng/ml White Blood Count 9.6 10^3/ul Red Blood Count 4.57 10^6/ul Hemoglobin 10.9 g/dl Hematocrit 36.8 % Mean Corpuscular Volume 80.5 fl Mean Corpuscular Hemoglobin 23.9 pg Mean Corpuscular Hemoglobin Concent 29.6 g/dl Red Cell Distribution Width 17.6 % Platelet Count 366 10^3/UL Mean Platelet Volume 11.6 fl Immature Granulocytes % 0.300 % Neutrophils % 73.3 % Lymphocytes % 16.9 % Monocytes % 6.9 % Eosinophils % 2.3 % Basophils % 0.3 % Nucleated Red Blood Cells % 0.0 /100WBC Immature Granulocytes # 0.030 10^3/ul Neutrophils # 7.0 10^3/ul Lymphocytes # 1.6 10^3/ul Monocytes # 0.7 10^3/ul Eosinophils # 0.2 10^3/ul Basophils # 0.0 10^3/ul Nucleated Red Blood Cells # 0.0 10^3/ul Current Medications Medications Dose Sig/Kimberlee Start Time Status Last (Trade) Ordered Route PRN Stop Time Admin Dose Reason Admin Aspirin 81 mg ONCE ONCE 11/12/18 DC 11/12/18 (Aspirin) PO 15:30 15:30 11/12/18 15:31 Morphine 4 mg ONCE STAT 11/12/18 DC 11/12/18 Sulfate IV 15:27 17:25 (morphine) 11/12/18 15:28 Ondansetron 4 mg ONCE STAT 11/12/18 DC 11/12/18 HCl (Zofran IV 15:27 17:25 Inj) 11/12/18 15:28 Morphine 4 mg ONCE STAT 11/12/18 DC 11/12/18 Sulfate IV 18:28 19:02 (morphine) 11/12/18 18:29 125 mg ONCE ONCE 11/12/18 DC 11/12/18 Methylprednis IV 19:00 18:38 olone Sodium 11/12/18 19:01 Succinate (Solu-Medrol) 25 mg ONCE ONCE 11/12/18 DC 11/12/18 Diphenhydrami IV 19:00 18:38 ne HCl 11/12/18 19:01 (Benadryl) IV Flush 10 ml STK-MED 11/12/18 DC (NS 10 ml) ONCE .ROUTE 18:44 11/12/18 18:45 Sodium 100 ml @ ud STK-MED 11/12/18 DC Chloride ONCE .ROUTE 18:44 11/12/18 18:45 Iohexol 100 ml @ ud STK-MED 11/12/18 DC ONCE .ROUTE 18:44 11/12/18 18:45 Procedures/MDM DOCUMENTS REVIEWED: ED nurse, prior ED/records EKG: Time: 1507. Sinus rhythm. Ventricular rate 98, normal CO and QRS intervals. No acute ST segment elevation or depression. No axis deviation or ectopy. My Interpretation: Normal EKG IMAGING: PROCEDURE: XR Chest. CLINICAL INDICATION: Chest pain. TECHNIQUE: Portable AP semi erect view of the chest was obtained. COMPARISON: 09/28/2018 FINDINGS: The cardiomediastinal silhouette is within normal limits. The lungs are clear. There is no evidence for pleural effusion, pneumothorax or pulmonary vascular congestion. The osseous structures are intact with no evidence for acute abnormality. RPTAT:HJJR IMPRESSION: No evidence for acute intrathoracic pathology. Physician Oliver Date Time Electronically viewed and signed by Physician Oliver on 11/12/2018 16:25 JR/ PROCEDURE: CTA Chest - Pulmonary embolism protocol with 3D reconstructions. CLINICAL INDICATION: Chest pain. TECHNIQUE: Intravenous contrast: 100 cc of Omnipaque 350 Post-processing 3D MIP reconstructions were performed. DICOM images are available. Radiation dose: CTDIvol = 19.5 mGy; total DLP = 722.8 mGy-cm. One or more of the following dose reduction techniques were used: - Automated exposure control. - Adjustment of the mA and/or kV according to patient size. - Use of iterative reconstruction technique. COMPARISON: 09/10/2018 FINDINGS: Satisfactory evaluation of the pulmonary arteries demonstrate no filling defect to the level of the segmental branches. Aorta is normal in course and caliber. Great vessels are unremarkable. Lungs are clear. No pleural effusion or pneumothorax. Heart is normal in size. No pericardial effusion. No significant mediastinal, hilar or axillary lymphadenopathy. Stable 3.2 cm heterogeneous mass posterior to the manubrium. Visualized abdomen demonstrates diffuse hepatic cysts measuring up to 2.9 cm in the right lobe. Status post cholecystectomy with mild intrahepatic biliary distension. Osseous structures are unremarkable. IMPRESSION: 1. Technically satisfactory CT pulmonary angiogram without evidence of pulmonary thromboembolic disease to the segmental arterial level. 2. Stable heterogeneous mass posterior to the maneuver compatible with substernal thyroid, thymoma or teratoma. 3. Stable hepatic cysts. 4. Mild biliary distension status post cholecystectomy. RPTAT: HMPE Physician Sabina Date Time Electronically viewed and signed by Tammy Preston Physician on 11/12/2018 19:11 ME/ PROCEDURE: US Lower extremity Venous. CLINICAL INDICATION: Bilateral lower extremity edema TECHNIQUE: Multiple sonographic images of the bilateral lower extremity deep venous system was obtained utilizing grayscale, color-flow, compressive sonography and doppler imaging with augmentation. The images were reviewed on a PACS workstation. COMPARISON: None. FINDINGS: There is normal compressibility and flow within the right common femoral, femoral , posterior tibial and popliteal veins. There is normal compressibility and flow within the left common femoral, femoral , posterior tibial and popliteal veins. The bilateral peroneal veins are not compressible with no Doppler flow. RPTAT: AA IMPRESSION: DVT involving the bilateral peroneal veins. ER nurse was notified at the time of examination. .Reggie Badillo MD, MD Date Time Electronically viewed and signed by .Reggie Badillo MD, MD on 11/12/2018 18:07 REEVALUATION: Time: MEDICAL DECISION MAKIN-year-old female with a history of mitral valve replacement in 2008 and DVT/pulmonary embolism in 2016 presents to the ED complaining of chest pain. CBC reveals mild anemia but no leukocytosis or thrombocytopenia. Chemistry significant for borderline hypokalemia but no other electrolyte abnormalities or renal insufficiency. Troponin is negative. EKG is normal without ischemic changes, dysrhythmia or right heart strain. Chest x-ray is negative for effusion or infiltrate. Venous Doppler lower extremities rev ealed distal peroneal DVTs in both lower extremities. CT pulmonary angiogram to evaluate for pulmonary embolism is unremarkable and anticoagulation is deferred. Patient presents with chest pain of uncertain etiology. She has no signs of congestive heart failure or acute mitral valve failure however further evaluation with echocardiogram is advisable. Aortic dissection unlikely. Patient with ongoing pain despite intravenous opiates will require admission for further evaluation and management to telemetry. PATIENT CARE TRANSITIONED: Time: 20:15, Dr. Norman. Counseled patient regarding diagnosis, diagnostic results and plan for admission. Departure Diagnosis: Primary Impression: Chest pain Chest pain type: unspecified Qualified Codes: R07.9 - Chest pain, unspecified Additional Impressions: DVT, recurrent, lower extremity, acute Laterality: bilateral Qualified Codes: I82.403 - Acute embolism and thrombosis of unspecified deep veins of lower extremity, bilateral History of mitral valve replacement Condition: Serious HUANG HOLCOMB MD Nov 12, 2018 15:18
[2018-11-12] MEDS ORDERED: ONDANSETRON 4 MG INJ IV STA (15:27)
[2018-11-12] MEDS ORDERED: morphine 4 MG/ML VIAL IV STA ×2 (15:27→18:28)
[2018-11-12] MEDS ORDERED: ASPIRIN 81 MG TAB PO ONE (15:30)
[2018-11-12] MEDS ORDERED: ASPI-817 PO (17:39)
[2018-11-12] MEDS ORDERED: NITR0.4T32 SL (17:39)
[2018-11-12] MEDS ORDERED: IOHEXOL 100 ML ONE (18:44)
[2018-11-12] MEDS ORDERED: SOD CHLORIDE 0.9% 100 ML ONE (18:44)
[2018-11-12] MEDS ORDERED: DIPHENHYDRAMINE 50 MG INJ IV ONE (19:00)
[2018-11-12] MEDS ORDERED: METHYLPREDNISOLONE 125 MG INJ IV ONE (19:00)
[2018-11-12] MEDS ORDERED: ACETAMINOPHEN 325 MG TAB PO PRN ×2 (20:30)
[2018-11-12] MEDS ORDERED: BISACODYL (EC) 5 MG TAB PO PRN (20:30)
[2018-11-12] MEDS ORDERED: ONDANSETRON 4 MG INJ IV PRN ×2 (20:30)
[2018-11-12] MEDS ORDERED: DOCUSATE SODIUM 100 MG CAP PO PRN (20:30)
[2018-11-12] MEDS ORDERED: NITROGLYCERIN (SL) 0.4 MG TAB SL PRN (20:30)
[2018-11-12] MEDS ORDERED: NACL 0.9% 3 ML SYG IV SCH (20:30)
[2018-11-12] MEDS ORDERED: morphine 4 MG/ML VIAL IV PRN (20:30)
--- NOTE | 2018-11-12 20:36 | HP ---
Date/Time of Note Date/Time of Note DATE: 11/12/18 TIME: 20:36 Assessment/Plan Lines/Catheters IV Catheter Type (from Nrs): Saline Lock Assessment/Plan Hospital Course Was notified by the RN that the patient wanted to leave AGAINST MEDICAL ADVICE. The risks and benefits were explained to the patient by the RN and she still wanted to leave AGAINST MEDICAL ADVICE. I was unable to see the patient. Result Diagram: 11/12/18 1717 11/12/18 1550 Results 24hrs Laboratory Tests Test 11/12/18 15:50 11/12/18 17:17 11/12/18 19:55 Prothrombin Time 11.9 Prothrombin Time Ratio 0.9 INR International Normalized Ratio 0.87 Activated Partial Thromboplast Time 24.8 Sodium Level 141 Potassium Level 3.4 L Chloride Level 104 Carbon Dioxide Level 29 Anion Gap 8 Blood Urea Nitrogen 9 Creatinine 0.70 Est Glomerular Filtrat Rate mL/min > 60 Glucose Level 104 Calcium Level 9.5 Troponin I < 0.012 < 0.012 White Blood Count 9.6 Red Blood Count 4.57 Hemoglobin 10.9 L Hematocrit 36.8 L Mean Corpuscular Volume 80.5 L Mean Corpuscular Hemoglobin 23.9 L Mean Corpuscular Hemoglobin Concent 29.6 L Red Cell Distribution Width 17.6 H Platelet Count 366 Mean Platelet Volume 11.6 H Immature Granulocytes % 0.300 Neutrophils % 73.3 Lymphocytes % 16.9 Monocytes % 6.9 Eosinophils % 2.3 Basophils % 0.3 Nucleated Red Blood Cells % 0.0 Immature Granulocytes # 0.030 Neutrophils # 7.0 Lymphocytes # 1.6 Monocytes # 0.7 Eosinophils # 0.2 Basophils # 0.0 Nucleated Red Blood Cells # 0.0 HPI/ROS Admit Date/Time Admit Date/Time Hx of Present Illness Was notified by the RN that the patient wanted to leave AGAINST MEDICAL ADVICE. The risks and benefits were explained to the patient by the RN and she still wanted to leave AGAINST MEDICAL ADVICE. I was unable to see the patient. PMH/Family/Social Past Medical History Medications Current Medications Ondansetron HCl (Zofran Inj) 4 mg ER BRIDGE PRN IV NAUSEA/VOMITING; Start 11/12/18 at 20:30; Stop 11/13/18 at 20:29 Acetaminophen (Tylenol Tab) 650 mg ER BRIDGE PRN PO .MILD PAIN 1-3 OR TEMP; Start 11/12/18 at 20:30; Stop 11/13/18 at 20:29 Coded Allergies: metoclopramide (Verified Allergy, Intermediate, 11/12/18) Penicillins (Unverified Allergy, Unknown, 11/12/18) ibuprofen (Verified Allergy, Unknown, 11/12/18) ketorolac (Verified Allergy, Unknown, 11/12/18) Past Surgical History Past Surgical Hx: other Family History Significant Family History: other Social History Smoking Status: Never smoker Exam/Review of Systems Vital Signs Vitals Vital Signs Date Temp Pulse Resp B/P (MAP) Pulse Ox O2 O2 Flow FiO2 Time Delivery Rate 11/12/18 98.6 90 18 131/77 100 Room Air 18:51 (95) Exam Additional Comments PROCEDURE: XR Chest. CLINICAL INDICATION: Chest pain. TECHNIQUE: Portable AP semi erect view of the chest was obtained. COMPARISON: 09/28/2018 FINDINGS: The cardiomediastinal silhouette is within normal limits. The lungs are clear. There is no evidence for pleural effusion, pneumothorax or pulmonary vascular congestion. The osseous structures are intact with no evidence for acute abnormality. RPTAT:HJJR IMPRESSION: No evidence for acute intrathoracic pathology. Physician Oliver Date Time Electronically viewed and signed by Ronn Dodge Physician on 11/12/2018 16:25 JR/ CC: HUANG HOLCOMB MD [id number] PROCEDURE: CTA Chest - Pulmonary embolism protocol with 3D reconstructions. CLINICAL INDICATION: Chest pain. TECHNIQUE: Intravenous contrast: 100 cc of Omnipaque 350 Post-processing 3D MIP reconstructions were performed. DICOM images are available. Radiation dose: CTDIvol = 19.5 mGy; total DLP = 722.8 mGy-cm. One or more of the following dose reduction techniques were used: - Automated exposure control. - Adjustment of the mA and/or kV according to patient size. - Use of iterative reconstruction technique. COMPARISON: 09/10/2018 FINDINGS: Satisfactory evaluation of the pulmonary arteries demonstrate no filling defect to the level of the segmental branches. Aorta is normal in course and caliber. Great vessels are unremarkable. Lungs are clear. No pleural effusion or pneumothorax. Heart is normal in size. No pericardial effusion. No significant mediastinal, hilar or axillary lymphadenopathy. Stable 3.2 cm heterogeneous mass posterior to the manubrium. Visualized abdomen demonstrates diffuse hepatic cysts measuring up to 2.9 cm in the right lobe. Status post cholecystectomy with mild intrahepatic biliary distension. Osseous structures are unremarkable. IMPRESSION: 1. Technically satisfactory CT pulmonary angiogram without evidence of pulmonary thromboembolic disease to the segmental arterial level. 2. Stable heterogeneous mass posterior to the maneuver compatible with substernal thyroid, thymoma or teratoma. 3. Stable hepatic cysts. 4. Mild biliary distension status post cholecystectomy. RPTAT: HMPE Physician Sabina Date Time Electronically viewed and signed by Physician Sabina on 11/12/2018 19:11 ME/ CC: HUANG HOLCOMB MD [id number] PROCEDURE: US Lower extremity Venous. CLINICAL INDICATION: Bilateral lower extremity edema TECHNIQUE: Multiple sonographic images of the bilateral lower extremity deep venous system was obtained utilizing grayscale, color-flow, compressive sonography and doppler imaging with augmentation. The images were reviewed on a PACS workstation. COMPARISON: None. FINDINGS: There is normal compressibility and flow within the right common femoral, femoral , posterior tibial and popliteal veins. There is normal compressibility and flow within the left common femoral, femoral , posterior tibial and popliteal veins. The bilateral peroneal veins are not compressible with no Doppler flow. RPTAT: AA IMPRESSION: DVT involving the bilateral peroneal veins. ER nurse was notified at the time of examination. .Reggie Badillo MD, Date Time Electronically viewed and signed by .Reggie Badillo MD, on 11/12/2018 18:07 .S/ CC: HUANG HOLCOMB MD [id number] ALEX VALLADARES Nov 12, 2018 20:36
[2018-11-12 20:56] VITALS: BP 127/63; PULSE 88; RESP 20
[2018-11-13] MEDS ORDERED: ASPIRIN 81 MG TAB PO SCH (09:00)
== END 2018-11-12 20:57 | disposition left against medical advice (07) ==
LOC: E/R 14:46 → CANBEDREQ 23:45
DX: I82.403 Acute embolism and thrombosis of unspecified deep veins of lower extremity, bilateral (principal); Z95.2 Presence of prosthetic heart valve
CPT/HCPCS: 36415; 71045; 71275; 80048; 84484; 85025; 85610; 85730; 93005; 93970; 96374; 96375; 96376; 99285; J1200; J2270; J2930; Q9967